=== PATIENT | female | born 1950 | race Caucasian/White ===

== ENCOUNTER 2017-01-14 08:46 | Day surgery (SDC) | payer OTHER, MEDICAID ==
[~2017-01-14 08:46] MED LIST: NS 500 ML IV 500 ML IV ONE
[2017-01-14] MEDS ORDERED: TETRACAINE 0.5% OPHTH 1 DOSE AFFEYE ONE ×5 (09:00→10:46)
[2017-01-14] MEDS ORDERED: VIGAMOX 0.5% OPHTH 1 DOSE AFFEYE ONE ×5 (09:05→10:59)
[2017-01-14] MEDS ORDERED: PROLENSA OPHTH 1 DOSE AFFEYE ONE (09:16)
[2017-01-14] MEDS ORDERED: ALPHAGAN-P OPHTH 1 DOSE AFFEYE ONE (09:17)
[2017-01-14] MEDS ORDERED: CYCLOGYL 1% OPHTH 1 DOSE OP ONE ×3 (09:18→09:20)
[2017-01-14] MEDS ORDERED: MYDRIACIL OPHTH 1 DOSE AFFEYE ONE ×3 (09:18→09:20)
[2017-01-14] MEDS ORDERED: AK-DILATE 2.5% OPHTH 1 DOSE OP ONE ×3 (09:18→09:20)
[2017-01-14] MEDS ORDERED: BSS OPHTH (PLAIN) 500 ML with VANCOMYCIN HCL 500 MG VIAL 25 MG, ADRENALINE CHL INJ 1 MG IR ONE ×6 (10:25)
[2017-01-14] MEDS ORDERED: BETADINE OPHTH SOLN 5% EACHEYE ONE ×2 (10:31→10:41)
[2017-01-14] MEDS ORDERED: DUOVISC IO ONE ×2 (10:32→10:46)
[2017-01-14] MEDS ORDERED: ADRENALINE CHL INJ IJ ONE ×2 (10:32→10:46)
[2017-01-14] MEDS ORDERED: XYLOCAINE-MPF 1% IJ ONE ×2 (10:32→10:46)
[2017-01-14 13:59] VITALS: BP 120/80
== END 2017-01-14 11:25 | disposition home or self-care (01) ==
LOC: SURG1 08:46
PROVIDERS: ATTEND Ophthalmology
PROC: 08RK3JZ Replacement of Left Lens with Synthetic Substitute, Percutaneous Approach (ICD-10-PCS; principal; 2017-01-14 12:45)
PROC: 08DK3ZZ Extraction of Left Lens, Percutaneous Approach (ICD-10-PCS; principal; 2017-01-14 12:45)
DX: H25.12 Age-related nuclear cataract, left eye (principal); H25.012 Cortical age-related cataract, left eye; H25.042 Posterior subcapsular polar age-related cataract, left eye
CPT/HCPCS: A4217; J0170; J3370